=== PATIENT | male | born 1950 | race Caucasian/White ===

== ENCOUNTER 2019-07-09 23:14 | Inpatient (IN) | payer SELFPAY ==
[~2019-07-09] VITALS: Ht 180.3 cm; Wt 90.7 kg
[2019-07-09] MEDS ORDERED: NITROGLYCERIN 0.4MG TABLET SL SL PRN (23:45)
[2019-07-10 00:30] LABS: BASOPHILS % 1.6 % (0.0-2.0); EOSINOPHILS % 3.4 % (0.0-5.0); HEMATOCRIT. 34.8 % (42.0-52.0); HEMOGLOBIN. 11.3 g/dL (14.0-18.0); LYMPHOCYTES % 17.1 % (20.0-50.0); MEAN CORPUSCULAR HEMOGLOBIN 27.2 pg (28.0-32.0); MEAN CORPUSCULAR VOLUME 83.5 fL (80.0-94.0); MEAN PLATELET VOLUME 8.4 fl (7.4-10.4); MONOCYTES % 9.1 % (2.0-8.0); NEUTROPHILS % 68.8 % (40.0-76.0); PLATELET 225 x1000/uL (130-400); RED BLOOD CELL COUNT 4.17 mill/uL (4.7-6.1)
[2019-07-10 00:43] LABS: CHLORIDE 107 mEq/L (98-107)
[2019-07-10] MEDS ORDERED: ENOXAPARIN 100MG/ML SYR SUBCUT SCH (01:00)
[2019-07-10 03:50] VITALS: BP 117/63
[2019-07-10] MEDS ORDERED: MAGNESIUM/ALUMINUM HYDROXIDE/SIMETHICONE 30ML UDC PO PRN (05:00)
[2019-07-10] MEDS ORDERED: GUAIFENESIN 200MG/10ML SUGAR FREE UDC PO PRN (05:00)
[2019-07-10] MEDS ORDERED: DOCUSATE SODIUM 100MG CAPSULE PO PRN (05:00)
[2019-07-10] MEDS ORDERED: ONDANSETRON HCL 4MG/2ML INJ IV PRN (05:00)
[2019-07-10] MEDS ORDERED: CLONIDINE 0.1MG TABLET PO PRN (05:00)
[2019-07-10] MEDS ORDERED: ACETAMINOPHEN 325MG TABLET PO PRN (05:00)
[2019-07-10] MEDS ORDERED: HYDROCODONE/ACETAMINOPHEN 5/325MG TABLET PO PRN (05:00)
[2019-07-10] MEDS ORDERED: ASPIRIN 81MG EC TABLET PO SCH (09:00)
[2019-07-11] MEDS ORDERED: ENOXAPARIN 40MG/0.4ML SYR SUBCUT SCH (09:00)
== END 2019-07-10 09:46 | disposition left against medical advice (07) | DRG 198 ==
LOC: ER 23:14 → 8WST 07-10 00:51 → ENRESERV 07-10 03:02
PROVIDERS: ADMIT Hospitalist; ATTEND Hospitalist
DX: I24.9 Acute ischemic heart disease, unspecified (principal); Z53.21 Procedure and treatment not carried out due to patient leaving prior to being seen by health care provider
CPT/HCPCS: 36415; 71045; 83880; 84484; 93005; 99285; J1650